=== PATIENT | female | born 2000 | race Caucasian/White ===

== ENCOUNTER 2023-07-11 15:43 | Emergency (ER) | payer SELFPAY ==
[~2023-07-11] VITALS: Ht 167.6 cm; Wt 68.0 kg
[2023-07-11] MEDS ORDERED: TDAP DIPH,PERTUSS,TET VAC/PF 0.5 ML DISP.SYRIN IM ONE ×2 (16:26→16:30)
[2023-07-11] MEDS ORDERED: LIDOCAINE HCL 1% 20 ML VIAL IJ ONE (16:30)
[2023-07-11] MEDS ORDERED: LIDOCAINE HCL 1% 20 ML VIAL ONE (16:31)
[2023-07-11 18:00] VITALS: BP 144/87; TEMP 98.6; O2SAT 99
== END 2023-07-11 18:01 | disposition home or self-care (01) ==
LOC: ER 15:43
DX: S61.512A Laceration without foreign body of left wrist, initial encounter (principal); W26.0XXA Contact with knife, initial encounter; Y93.89 Activity, other specified; Y92.89 Other specified places as the place of occurrence of the external cause; Y99.8 Other external cause status
CPT/HCPCS: 12002; 73110; 90471; 90715; 99283; J3490; A4606; A4663